=== PATIENT | male | born 2000 | race Caucasian/White ===

== ENCOUNTER 2025-10-18 13:29 | Emergency (ER) | payer SELFPAY ==
[~2025-10-18] VITALS: Ht 172.7 cm; Wt 100.0 kg
[2025-10-18 13:37] VITALS: TEMP 98.4; O2SAT 98
[2025-10-18 15:29] VITALS: BP 131/84; PULSE 116; RESP 18
[2025-10-18] MEDS: KETOROLAC 30MG/ML VIAL IM ONE (15:29)
[2025-10-18] MEDS: LIDOCAINE 5% PATCH TOP SCH (15:29)
[2025-10-18] MEDS ORDERED: LIDO-53 TP (15:57)
[2025-10-18] MEDS ORDERED: IBUP-1455 MT (15:57)
== END 2025-10-18 17:40 | disposition home or self-care (01) ==
LOC: ER 13:29
DX: M79.605 Pain in left leg (principal); M54.50 Low back pain, unspecified; M54.2 Cervicalgia
CPT/HCPCS: 99284; 71045; 73552; 72170; 96372; J1885